=== PATIENT | male | born 1950 | race Caucasian/White ===

== ENCOUNTER 2023-01-03 23:54 | Emergency (ER) | payer OTHER, SELFPAY ==
[2023-01-04 00:02] VITALS: BP 151/74; PULSE 86; RESP 16; TEMP 36.7; O2SAT 96; BMI 25.7
--- NOTE | 2023-01-04 04:39 | ED.GENADULT ---
HPI - General Adult General Chief complaint: General Medical Stated complaint: Homeless Cold and wet looking for a place to go Time Seen by Provider: 01/04/23 04:37 Source: patient and EMS Mode of arrival: EMS Limitations: no limitations History of Present Illness HPI narrative: Patient comes to the emergency room complaining that he is homeless and has no place to go. Also shared those were closed due to availability. Patient requesting to have him stay until shift change in the morning. Patient has no other complaints. Review of Systems Review of Systems: Constitutional : No Weight loss, No Fever, No Chills, No Night Sweats, No Fatigue, No Malaise ENT/Mouth : No Hearing loss, No Ear Pain, No Nasal Congestion, No Sinus Pain, No Hoarseness, No sore throat, No Rhinorrhea, No Swallowing Difficulty Eyes: No Eye Pain, No Swelling, No Redness, No Foreign Body, No Discharge, No Vision Changes Cardiovascular : No Chest Pain, No SOB, No Dyspnea on Exertion, No Orthopnea, No Edema, No Palpitations Respiratory : No Cough, No Sputum, No Wheezing, No Smoke Exposure, No Dyspnea Gastrointestinal : No Nausea, No Vomiting, No Diarrhea, No Constipation, No abdominal Pain, No Hematochezia, No Melena Genitourinary : no irregular bleeding, No Dysuria, No Urinary Frequency, No Hematuria, No Urinary Incontinence, No Urgency, No Flank Pain, No Urinary Flow Changes, No Hesitancy Musculoskeletal : No joint pain, No Myalgias, No Joint Swelling Skin : No Skin Lesions, No rash Neuro : No Weakness, No Numbness, No Paresthesias, No Loss of Consciousness, No Dizziness, No Headache Psych : No Anxiety/Panic, No Depression, No SI/HI/AH/VH, patient is homeless Heme/Lymph: No Bruising, No Bleeding,No Lymphadenopathy Endocrine : No Polyuria, No Polydipsia, No Temperature Intolerance [facility] Social History Social History Advance Directives: No Physical Exam ED Vital Signs: Vital Signs - 24 hr 01/04/23 00:02 Temperature 98.0 F Pulse Rate 86 Respiratory Rate 16 Blood Pressure 151/74 H Pulse Oximetry 96 Oxygen Delivery Method Room Air BMI result Body Mass Index 25.7 Const Other: Appearance: Alert. Oriented X3. No acute distress. Eyes: Pupils equal, round and reactive to light. ENT: Pharynx normal. Neck: Normal inspection. Neck supple. No lymph nodes noted. No crepitus CVS: Normal heart rate and rhythm. Pulses normal. Normal S1 and S2 Respiratory: No respiratory distress. Breath sounds normal. No Wheezing. No rales Abdomen: Soft and nontender. No rigidity. No distention. Skin: Skin warm and dry. Normal skin color. Normal skin turgor. Extremities: No lower extremity edema. No Lacerations. No Rash Neuro: Oriented X 3. No motor deficit. No sensory deficit. Moving all extremities. No slurred speech. CN 2 through 12 grossly intact Psych: calm, cooperative, normal affect Course Course Course Narrative: -patient has no complaints, requesting to stay in the ED a few hours. Tonight is very cold and snowing heavily outside. -discussed with the patient that he can not stay in the ED until his shift change, we will feed him breakfast before discharge, patient very grateful and agreeable to plan Discharge Plan Discharge Clinical Impression: Homeless Patient Disposition: Home, Self-Care Additional Instructions: Please follow-up with your primary care physician tomorrow. If you have any worsening or new symptoms, please return to the emergency room or call 911
[2023-01-04 05:11] VITALS: BP 142/76; PULSE 86; RESP 16; TEMP 36.6; O2SAT 97
== END 2023-01-04 08:32 | disposition home or self-care (01) ==
PROVIDERS: Emergency Provider Emergency Medicine
DX: T69.8XXA Other specified effects of reduced temperature, initial encounter (principal); Z59.02 Unsheltered homelessness; W93.8XXA Exposure to other excessive cold of man-made origin, initial encounter
CPT/HCPCS: 99282; 99283